=== PATIENT | female | born 1975 | race African-American/Black ===

== ENCOUNTER 2016-11-13 02:21 | Emergency (ER) | payer MEDICAID ==
[~2016-11-13] VITALS: Ht 160 cm; Wt 83.0 kg
[2016-11-13] MEDS ORDERED: IBUPROFEN 200 MG TABLET PO ONE (02:30)
[2016-11-13] MEDS ORDERED: SULFAMETH./TRIMETHOPRIM DS 800MG/160MG TABLET PO ONE (02:30)
[2016-11-13 02:48] VITALS: BP 174/125
[2016-11-13] MEDS ORDERED: SUBOXONE PO (02:54)
== END 2016-11-13 03:00 | disposition home or self-care (01) ==
LOC: ED 02:25
DX: S41.111D Laceration without foreign body of right upper arm, subsequent encounter (principal); Y09 Assault by unspecified means; Y93.89 Activity, other specified; Y99.8 Other external cause status; Y92.89 Other specified places as the place of occurrence of the external cause
CPT/HCPCS: 99283

== ENCOUNTER 2017-02-17 00:08 | Emergency (ER) | payer MEDICAID ==
[~2017-02-17] VITALS: Ht 160 cm; Wt 79.0 kg
[~2017-02-17 00:08] MED LIST: SUBOXONE PO
[2017-02-17 00:10] VITALS: BP 170/129
== END 2017-02-17 01:03 | disposition left against medical advice (07) ==
LOC: ED 00:57
DX: S80.10XA Contusion of unspecified lower leg, initial encounter (principal); Z53.21 Procedure and treatment not carried out due to patient leaving prior to being seen by health care provider; X58.XXXA Exposure to other specified factors, initial encounter; Y93.89 Activity, other specified; Y92.89 Other specified places as the place of occurrence of the external cause; Y99.8 Other external cause status

== ENCOUNTER 2017-04-08 21:38 | Emergency (ER) | payer MEDICAID ==
[~2017-04-08] VITALS: Ht 160 cm; Wt 76.7 kg
[2017-04-08] MEDS ORDERED: LIDOCAINE 1%, 20ML ONE (22:25)
[2017-04-08] MEDS ORDERED: LIDOCAINE 1%, 10ML INFIL ONE (22:30)
[2017-04-08 23:17] VITALS: BP 140/103
== END 2017-04-08 23:20 | disposition home or self-care (01) ==
LOC: ED 23:14
DX: L02.415 Cutaneous abscess of right lower limb (principal); I10 Essential (primary) hypertension; Z88.0 Allergy status to penicillin
CPT/HCPCS: 10060

== ENCOUNTER 2018-02-22 08:25 | Emergency (ER) | payer MEDICAID ==
[~2018-02-22] VITALS: Ht 160 cm; Wt 81.9 kg
[2018-02-22 09:32] LABS: CULTURE INDICATED? YES; MICROSCOPIC INDICATED
[2018-02-22 10:01] LABS: BASOPHILS # (AUTO) 0.04 x10^3/uL (0-0.1); BASOPHILS % (AUTO) 1 % (0-1); EOSINOPHILS # (AUTO) 0.08 x10^3/uL (0-0.4); EOSINOPHILS % (AUTO) 1 % (1-7); LYMPHOCYTES # (AUTO) 2.07 x10^3/uL (1-3.4); LYMPHOCYTES % (AUTO) 31 % (22-44); MD NO; MEAN CORPUSCULAR HEMOGLOBIN 30.1 pg (27.0-34.8); MEAN CORPUSCULAR HGB CONC 33.1 g/dL (32.4-35.8); MEAN CORPUSCULAR VOLUME 90.7 fL (80-100); MEAN PLATELET VOLUME 8.3 fL (7.4-10.4); MONOCYTES # (AUTO) 0.72 x10^3/uL (0.2-0.8); MONOCYTES % (AUTO) 11 % (2-9); NEUTROPHILS # (AUTO) 3.74 x10^3/uL (1.8-6.8); NEUTROPHILS % (AUTO) 56 % (42-75); PLATELET COUNT 226 x10^3/uL (130-400); RED BLOOD COUNT 4.29 x10^6/uL (3.82-5.3); RED CELL DISTRIBUTION WIDTH 14.3 % (9.6-15.2)
[2018-02-22 10:11] LABS: ALBUMIN 2.8 g/dL (3.4-5.0); ANION GAP 5 mmol/L (5-15); CALCIUM 8.2 mg/dL (8.5-10.1); CHLORIDE 108 mmol/L (98-107)
[2018-02-22 10:15] LABS: TROPONIN I < 0.015 ng/mL (0.000-0.045)
[2018-02-22 10:16] LABS: ALANINE AMINOTRANSFERASE 20 U/L (12-78); ALKALINE PHOSPHATASE 92 U/L (45-117); BILIRUBIN,TOTAL 0.3 mg/dL (0.2-1.0); CREATININE 0.95 mg/dL (0.55-1.02); TOTAL PROTEIN 6.5 g/dL (6.4-8.2)
[2018-02-22 10:49] VITALS: BP 162/104
== END 2018-02-22 10:51 | disposition home or self-care (01) ==
LOC: ED 10:15
DX: N30.90 Cystitis, unspecified without hematuria (principal); I87.2 Venous insufficiency (chronic) (peripheral); I10 Essential (primary) hypertension; Z72.9 Problem related to lifestyle, unspecified
CPT/HCPCS: 36415; 71045; 80053; 81001; 83880; 84484; 85025; 87077; 87086; 87186; 93005; 93970; 99285

== ENCOUNTER 2018-03-30 00:51 | Emergency (ER) | payer MEDICAID ==
[~2018-03-30] VITALS: Ht 160 cm; Wt 82.6 kg
[2018-03-30] MEDS ORDERED: LISI-167 PO (00:55)
[2018-03-30] MEDS ORDERED: GABA300C10 PO (00:55)
[2018-03-30 01:35] LABS: BASOPHILS # (AUTO) 0.03 x10^3/uL (0-0.1); BASOPHILS % (AUTO) 0 % (0-1); EOSINOPHILS # (AUTO) 0.03 x10^3/uL (0-0.4); EOSINOPHILS % (AUTO) 0 % (1-7); LYMPHOCYTES # (AUTO) 1.12 x10^3/uL (1-3.4); LYMPHOCYTES % (AUTO) 12 % (22-44); MD NO; MEAN CORPUSCULAR HEMOGLOBIN 29.4 pg (27.0-34.8); MEAN CORPUSCULAR HGB CONC 32.7 g/dL (32.4-35.8); MEAN CORPUSCULAR VOLUME 89.8 fL (80-100); MEAN PLATELET VOLUME 8.2 fL (7.4-10.4); MONOCYTES # (AUTO) 0.62 x10^3/uL (0.2-0.8); MONOCYTES % (AUTO) 6 % (2-9); NEUTROPHILS # (AUTO) 7.89 x10^3/uL (1.8-6.8); NEUTROPHILS % (AUTO) 81 % (42-75); PLATELET COUNT 242 x10^3/uL (130-400); RED BLOOD COUNT 4.31 x10^6/uL (3.82-5.3); RED CELL DISTRIBUTION WIDTH 13.8 % (9.6-15.2)
[2018-03-30 01:39] LABS: MICROSCOPIC NOT IND
[2018-03-30 01:44] LABS: ALANINE AMINOTRANSFERASE 30 U/L (12-78); ANION GAP 5 mmol/L (5-15); CALCIUM 8.7 mg/dL (8.5-10.1); CHLORIDE 110 mmol/L (98-107); CREATININE 1.05 mg/dL (0.55-1.02)
[2018-03-30 01:47] LABS: CULTURE INDICATED? NO
[2018-03-30 01:59] LABS: ALKALINE PHOSPHATASE 90 U/L (45-117); BILIRUBIN,TOTAL 0.3 mg/dL (0.2-1.0); TOTAL PROTEIN 7.2 g/dL (6.4-8.2); TROPONIN I < 0.015 ng/mL (0.000-0.045)
[2018-03-30 02:30] VITALS: BP 140/95
== END 2018-03-30 02:33 | disposition home or self-care (01) ==
LOC: ED 02:04
DX: R60.0 Localized edema (principal); I10 Essential (primary) hypertension; M79.672 Pain in left foot; M79.671 Pain in right foot; F17.200 Nicotine dependence, unspecified, uncomplicated; Z90.49 Acquired absence of other specified parts of digestive tract; Z88.0 Allergy status to penicillin
CPT/HCPCS: 36415; 80053; 81003; 83880; 84484; 85025; 93005; 99285

== ENCOUNTER 2019-02-11 13:54 | Emergency (ER) | payer MEDICAID ==
[~2019-02-11] VITALS: Ht 160 cm; Wt 85.5 kg
[~2019-02-11 13:54] MED LIST changes: +GABA300C10 PO; +LISI-167 PO
[2019-02-11] MEDS ORDERED: [UNRECOGNIZED DRUG - REMARK] (14:06)
[2019-02-11] MEDS ORDERED: AMLO10TA8 PO (14:06)
--- NOTE | 2019-02-11 14:08 | NUR ---
PT AMBULATORY TO ED ROOM 12. STATES SHE'S NOT TAKEN HTN MED DUE TO FINANCIAL REASONS. TOOK ADVIL THIS AM FOR ACHY KNEES. NON-PITTING PEDAL EDEMA. A&OX4, RESP EVEN & UNLABORED, SPEECH CLEAR, SKIN WNL.
[2019-02-11] MEDS ORDERED: METOPROLOL TARTRATE 50 MG TABLET ONE (14:25)
[2019-02-11] MEDS ORDERED: SODIUM CHLORIDE FLUSH 10ML SYR IVF ONE (14:30)
[2019-02-11] MEDS ORDERED: LABETALOL 5MG/ML, 20ML IVPush ONE (14:30)
[2019-02-11] MEDS ORDERED: METOPROLOL TARTRATE 50 MG TABLET PO ONE (14:30)
--- NOTE | 2019-02-11 14:31 | NUR ---
CXR DONE, LABS DRAWN, CLONIDINE GIVEN PER EMAR. LOBATALOL AND METOPROLOL ORDERS TO BE CANCELLED PER VO ERP. HOLD IV ACCESS, FOR NOW.
[2019-02-11 14:41] LABS: BASOPHILS # (AUTO) 0.02 x10^3/uL (0-0.1); BASOPHILS % (AUTO) 0 % (0-1); EOSINOPHILS # (AUTO) 0.08 x10^3/uL (0-0.4); EOSINOPHILS % (AUTO) 1 % (1-7); LYMPHOCYTES # (AUTO) 1.82 x10^3/uL (1-3.4); LYMPHOCYTES % (AUTO) 26 % (22-44); MD NO; MEAN CORPUSCULAR HEMOGLOBIN 28.2 pg (27.0-34.8); MEAN CORPUSCULAR HGB CONC 31.8 g/dL (32.4-35.8); MEAN CORPUSCULAR VOLUME 88.8 fL (80-100); MEAN PLATELET VOLUME 7.9 fL (7.4-10.4); MONOCYTES # (AUTO) 0.84 x10^3/uL (0.2-0.8); MONOCYTES % (AUTO) 12 % (2-9); NEUTROPHILS # (AUTO) 4.39 x10^3/uL (1.8-6.8); NEUTROPHILS % (AUTO) 61 % (42-75); PLATELET COUNT 238 x10^3/uL (130-400); RED BLOOD COUNT 4.27 x10^6/uL (3.82-5.3); RED CELL DISTRIBUTION WIDTH 14.2 % (9.6-15.2)
[2019-02-11 14:49] LABS: ALANINE AMINOTRANSFERASE 24 U/L (12-78); ALBUMIN 3.1 g/dL (3.4-5.0); ANION GAP 4 mmol/L (5-15); CALCIUM 8.9 mg/dL (8.5-10.1); CHLORIDE 106 mmol/L (98-107); CREATININE 0.84 mg/dL (0.55-1.02)
[2019-02-11 14:54] LABS: ALKALINE PHOSPHATASE 109 U/L (45-117); BILIRUBIN,TOTAL 0.2 mg/dL (0.2-1.0); TOTAL PROTEIN 7.3 g/dL (6.4-8.2); TROPONIN I < 0.015 ng/mL (0.000-0.045)
--- NOTE | 2019-02-11 15:18 | NUR ---
RESTING QUIETLY ON BED, USING CELL PHONE, EATING COOKIES. MONITORING CONTINUES. NO ADDITIONAL NEEDS AT THIS TIME.
[2019-02-11 15:46] VITALS: BP 155/113
--- NOTE | 2019-02-11 15:53 | NUR ---
DR NARVAEZ BS.
--- NOTE | 2019-02-11 16:06 | NUR ---
LATE ENTRY FROM 1420: PT AMBULATORY TO & FROM BR W/OUT INCIDENT, GAIT STEADY
--- NOTE | 2019-02-11 16:07 | NUR ---
PT TO BE DISCHARGED; REQUESTING IBUPROFEN FOR HER CHRONIC KNEE PAIN. ERP WILL BE NOTIFIED.
[2019-02-11] MEDS ORDERED: IBUPROFEN 600 MG TABLET ONE (16:13)
[2019-02-11] MEDS ORDERED: IBUPROFEN 200 MG TABLET PO ONE (16:30)
== END 2019-02-11 16:22 | disposition home or self-care (01) ==
LOC: ED 16:14
DX: I10 Essential (primary) hypertension (principal); F15.10 Other stimulant abuse, uncomplicated; F17.200 Nicotine dependence, unspecified, uncomplicated; Z88.0 Allergy status to penicillin
CPT/HCPCS: 36415; 71046; 80053; 83880; 84484; 85025; 93005; 99284

== ENCOUNTER 2019-10-22 02:01 | Emergency (ER) | payer MEDICAID ==
[~2019-10-22] VITALS: Ht 160 cm; Wt 88.4 kg
[~2019-10-22 02:01] MED LIST changes: +AMLO10TA8 PO; +[UNRECOGNIZED DRUG - REMARK]
[2019-10-22 02:03] VITALS: BP 186/117
== END 2019-10-22 03:54 | disposition left against medical advice (07) ==
LOC: ED 03:30
DX: I10 Essential (primary) hypertension (principal); Z53.21 Procedure and treatment not carried out due to patient leaving prior to being seen by health care provider
CPT/HCPCS: 93005

== ENCOUNTER 2019-11-25 16:13 | Emergency (ER) | payer MEDICAID ==
[~2019-11-25] VITALS: Ht 160 cm; Wt 85.5 kg
--- NOTE | 2019-11-25 16:26 | NUR ---
AMBULATORY TO ED ROOM 7 W/ STEADY GAIT.
--- NOTE | 2019-11-25 16:34 | NUR ---
AMBULATORY TO & FROM [facility] W/OUT INCIDENT; GAIT STEADY. VOIDED SPECIMEN PROVIDED; CLOUDY YELLOW
--- NOTE | 2019-11-25 16:35 | NUR ---
C/O NUMB FEET, LEG CRAMPS, SCRATCHY THROAT, BP IS "VERY HIGH AND I GET DIZZY". DENIES FEVER. REPORT MINOR COUGH, "NOT OFTEN". + TOBACCO USE. "POOPING MORE OFTEN". DENIES UTI SX. TOOK IBUPROFEN AT 1000 TODAY.
[2019-11-25] MEDS ORDERED: HYDR25TA6 PO (16:42)
[2019-11-25] MEDS ORDERED: AMLO5TAB10 PO (16:42)
[2019-11-25] MEDS ORDERED: ONDANSETRON 2MG/ML, 2ML IVPush ONE (17:00)
[2019-11-25] MEDS ORDERED: SODIUM CHLORIDE FLUSH 10ML SYR IVF ONE (17:00)
[2019-11-25] MEDS ORDERED: LORazepam 2 MG/ML, 1ML IVPush ONE (17:00)
[2019-11-25 17:01] LABS: MICROSCOPIC INDICATED
[2019-11-25] MEDS ORDERED: ONDANSETRON 2MG/ML, 2ML ONE (17:11)
[2019-11-25] MEDS ORDERED: LORazepam 2 MG/ML, 1ML ONE (17:11)
--- NOTE | 2019-11-25 17:20 | NUR ---
PT DOZING ON BED; EASILY AWAKENED.
--- NOTE | 2019-11-25 17:28 | NUR ---
ATIVAN AND ZOFRAN GIVEN PER EMAR. PT DOZING, RESP EVEN & UNLABORED. SIDE RAIL UP X1, CALL LIGHT W/IN REACH.
[2019-11-25 17:34] LABS: ALBUMIN 3.1 g/dL (3.4-5.0); ANION GAP 6 mmol/L (5-15); CALCIUM 9.1 mg/dL (8.5-10.1); CHLORIDE 102 mmol/L (98-107); CREATININE 0.95 mg/dL (0.55-1.02)
[2019-11-25 17:35] LABS: BASOPHILS # (AUTO) 0.09 x10^3/uL (0-0.1); BASOPHILS % (AUTO) 1 % (0-1); EOSINOPHILS # (AUTO) 0.05 x10^3/uL (0-0.4); EOSINOPHILS % (AUTO) 1 % (1-7); LYMPHOCYTES # (AUTO) 1.82 x10^3/uL (1-3.4); LYMPHOCYTES % (AUTO) 21 % (22-44); MD NO; MEAN CORPUSCULAR HEMOGLOBIN 29.9 pg (27.0-34.8); MEAN CORPUSCULAR HGB CONC 33.3 g/dL (32.4-35.8); MEAN CORPUSCULAR VOLUME 89.8 fL (80-100); MEAN PLATELET VOLUME 8.6 fL (7.4-10.4); MONOCYTES # (AUTO) 0.73 x10^3/uL (0.2-0.8); MONOCYTES % (AUTO) 8 % (2-9); NEUTROPHILS # (AUTO) 6.09 x10^3/uL (1.8-6.8); NEUTROPHILS % (AUTO) 69 % (42-75); PLATELET COUNT 239 x10^3/uL (130-400); RED BLOOD COUNT 4.43 x10^6/uL (3.82-5.3); RED CELL DISTRIBUTION WIDTH 14.1 % (9.6-15.2)
[2019-11-25 17:38] LABS: TROPONIN I < 0.015 ng/mL (0.000-0.045)
--- NOTE | 2019-11-25 18:10 | NUR ---
PT DRESSED, AMBULATORY TO [facility] W/ STEADY GAIT.
[2019-11-25 18:25] VITALS: BP 158/109
== END 2019-11-25 18:27 | disposition home or self-care (01) ==
LOC: ED 16:57
DX: I10 Essential (primary) hypertension (principal); F15.10 Other stimulant abuse, uncomplicated; F11.10 Opioid abuse, uncomplicated; R42 Dizziness and giddiness; R00.0 Tachycardia, unspecified
CPT/HCPCS: 36415; 71045; 80048; 81001; 82040; 83880; 84484; 85025; 93005; 96374; 96375; 99285; J2060; J2405